=== PATIENT | female | born 1995 | race Caucasian/White ===

== ENCOUNTER 2016-07-27 14:24 | Inpatient (IN) | payer BC ==
[2016-07-27] MEDS ORDERED: LIDOCAINE 1% (PRES FREE) 30 ML VIAL ONE (15:05)
[2016-07-27] MEDS ORDERED: IV START KIT ONE (15:05)
[2016-07-27] MEDS ORDERED: LACTATED RINGERS 1,000 ML ONE (15:05)
[2016-07-27] MEDS ORDERED: OXYTOCIN 10 UNITS/ML VIAL ONE ×2 (15:05→16:48)
[2016-07-27] MEDS ORDERED: LIDOCAINE Viscous 2% 15 ML UDCUP ONE (15:05)
[2016-07-27] MEDS ORDERED: PUMP TUBING ONE ×2 (15:05→17:33)
[2016-07-27] MEDS ORDERED: MINERAL OIL 25 ML BOT ONE (15:05)
[2016-07-27] MEDS ORDERED: OXYTOCIN IN LR 0 ML IV ONE (15:06)
[2016-07-27] MEDS ORDERED: SODIUM CHLORIDE 0.9% FLUSH 10 ML ONE (15:21)
[2016-07-27] MEDS ORDERED: LACTATED RINGERS 2,000 ML ONE (15:52)
[2016-07-27 15:53] VITALS: BMI 28.8
[2016-07-27] MEDS ORDERED: EPIDURAL PROCEDURE TRAY ONE (15:55)
[2016-07-27 15:56] LABS: HEMATOCRIT 34.1 % (37.0-47.0); HEMOGLOBIN 10.7 gm/l (12.0-16.0); MEAN CORPUSCULAR HEMOGLOBIN 25.4 pg (27.0-31.0); MEAN CORPUSCULAR HGB CONC 31.4 g/dl (33.0-37.0); RED CELL DISTRIBUTION WIDTH 15.3 % (11.5-14.5)
[2016-07-27] MEDS ORDERED: FENTANYL/ROPIVACAINE EPIDURAL 0 ML EP ONE (16:00)
[2016-07-27] MEDS ORDERED: EPIDURAL PUMP SET ONE (16:00)
[2016-07-27] MEDS ORDERED: SPINAL PROCEDURAL TRAY 1 EACH ONE (16:11)
[2016-07-27] MEDS ORDERED: CEFAZOLIN SODIUM 2 GRAM DUPLEX 50 ML IV ONE (16:17)
[2016-07-27] MEDS ORDERED: MIDAZOLAM HCL 1 MG/ML 2ML VIAL ONE (16:34)
[2016-07-27] MEDS ORDERED: FENTANYL 100 MCG/2 ML VIAL ONE ×2 (16:35→17:00)
[2016-07-27] MEDS ORDERED: METHYLERGONOVINE MALEATE 0.2 MG/ML 1ML AMP ONE (16:40)
[2016-07-27] MEDS ORDERED: SUCCINYLCHOLINE CHL 20 MG/ML DOSE ONE (16:48)
[2016-07-27] MEDS ORDERED: PROPOFOL 20 ML IV ONE (16:48)
[2016-07-27] MEDS ORDERED: DEXAMETHASONE SOD PHOS 4 MG/1 ML VIAL ONE (16:49)
[2016-07-27] MEDS ORDERED: HYDROMORPHONE HCL 2 MG/ML SYRINGE ONE (16:51)
[2016-07-27] MEDS ORDERED: HYDROMORPHONE HCL 1 MG/ML SYRINGE IV PRN ×2 (17:05→19:35)
[2016-07-27] MEDS ORDERED: ONDANSETRON 4 MG/2ML 2 ML VIAL IV PRN ×2 (17:05→18:01)
[2016-07-27] MEDS ORDERED: HYDRALAZINE HCL 20 MG/1 ML VIAL IV PRN (17:05)
[2016-07-27] MEDS ORDERED: NALOXONE HCL 0.4 MG/ML VIAL IV PRN (17:05)
[2016-07-27] MEDS ORDERED: ATROPINE SULFATE 0.4 MG/1 ML VIAL IV PRN (17:05)
[2016-07-27] MEDS ORDERED: LABETALOL HCL 5 MG/ML 20ML VIAL IV PRN (17:05)
[2016-07-27] MEDS ORDERED: PROMETHAZINE HCL 25 MG/ML VIAL IM PRN (17:05)
[2016-07-27] MEDS ORDERED: MEPERIDINE 25 MG/ML SYRINGE IV PRN (17:05)
[2016-07-27] MEDS ORDERED: LACTATED RINGERS 1,000 ML IV SCH (17:15)
--- NOTE | 2016-07-27 17:24 | PDOC1 ---
- HPI 21 year old weeks gestational age by LMP, confirmed with 13 week ultrasound who presents in spontaneous labor at 4cm, membranes intact. Upon admissions, pt having spontaneous prolonged decelerations to 60-70's, over 1-3minutes. FHT recovered with moderate variability. Initially plan was to get epidural and observe, however the deceleration returned when pt SROM for thick meconium in triage. course otherwise uncomplicated. Allergies/Adverse Reactions: Allergies Sulfa (Sulfonamide Antibiotics) Allergy (Intermediate, Verified 06/07/14 15:58) Hives - Labs & Studies LABS: A-POS, Ab negative Rubella Immune RPR NR HepB NR GC/CT neg HIV neg GBS neg - Physical Exam General: Moderate Distress (uncomfortable with contractions) Psych/Mental Status: Mood/Affect Appropriate, Judgment/Insight Intact Abdomen: Other (EFW 3800g), No Tenderness, No Distention Genitourinary: Other (4cm dilated by RN; thick particulate meconium noted,) - Assessment & Plan 21yo at 41+4, admitted in labor but with NRFHT upon admission. Recurrent deep variable decelerations noted prior to and after SROM with thick meconium. Concern re: status is reviewed with pt. FSE had been placed. Discussed with patient the risks of including infection, bleeding, damage to underlying structures including bowel, bladder, uterus, tubes, ovaries , baby, and ureter, as well as will have a scar and can have persistent pain and numbness at incision site. Initially recommended spinal with FSE monitoring, however in OR had another deceleration to 60s >2 min. At this point, general anesthesia and expedient delivery commenced.
[2016-07-27] MEDS: FENTANYL 100 MCG/2 ML VIAL IV PRN ×3 (17:35→17:58)
[2016-07-27] MEDS ORDERED: DIPHENHYDRAMINE HCL 50 MG/1 ML VIAL IV PRN (18:01)
[2016-07-27] MEDS ORDERED: HYDROMORPHONE HCL 0.5 MG/0.5 ML SYRINGE IV PRN (18:01)
[2016-07-27] MEDS ORDERED: DIPHENHYDRAMINE HCL 25 MG CAPSULE PO PRN (18:01)
[2016-07-27] MEDS ORDERED: LANOLIN 50 APPLIC/7G TUBE TP PRN (18:01)
[2016-07-27] MEDS: HYDROMORPHONE HCL 1 MG/ML SYRINGE IV PRN ×2 (19:43→22:01)
--- NOTE | 2016-07-27 20:02 | OP ---
MARGARET FARIAS [id number] DATE OF OPERATION: July 27, 2016 PREOPERATIVE DIAGNOSES: 1. A 41 weeks plus 4 days . 2. Labor. 3. Nonreassuring heart tracing. POSTOPERATIVE DIAGNOSES: 1. A 41 weeks plus 4 days . 2. Labor. 3. Nonreassuring heart tracing. OPERATION PERFORMED: PRIMARY LOW-TRANSVERSE SECTION. SURGEON: Onel Escalona M.D. APPLIQUE SEWER: Joana Manrique C.N.M. ANESTHESIA: General. ESTIMATED BLOOD LOSS: 800 mL. COMPLICATIONS: None. OPERATIVE FINDINGS: Include: 1. A live born baby female in cephalic presentation with thick meconium. Baby was also found to be in direct occiput posterior position. There was no nuchal cord noted and no signs of abruption. 2. Ovaries, tubes and uterus are normal. DETAILS OF PROCEDURE: The patient was taken to the operating room and initially plan was for spinal anesthesia. However, upon arrival into the operating room and monitoring, it was noted that there was a prolonged deceleration into the 60s for two to three minutes. At this point, decision was made to proceed with general anesthesia for expedient delivery. Patient was then placed in supine position and a Hernandez catheter was then placed. The patient was then prepped and draped in sterile fashion. Patient was then placed under general anesthesia and the procedure was commenced. A Pfannenstiel incision was made and taken down to the level of the fascia. The fascia was incised transversely and dissected bilaterally off of the underlying rectus muscle. The rectus muscle was in the midline bluntly, and the peritoneal cavity was entered in bluntly and stretched. An Buck retractor was then placed, and a bladder flap was created. A transverse incision was made on the lower uterine segment. Baby was found to be in direct occiput posterior position and delivered easily and was bulb suctioned. There was a one-minute delay at this point prior to clamping of the cord. The cord was then doubly clamped and cut and the baby was then taken to the warmer for the nursing staff. The placenta was then extracted manually, and the uterus was cleared of all clots and membranes. The placenta was then sent to pathology due to meconium. The uterus was cleared of all clots and membranes, and the uterine incision was then closed with #0 Vicryl in a continuous fashion. A second layer of #0 Vicryl was used to imbricate this incision. There was good hemostasis observed. Tubes and ovaries were found to be normal. The peritoneum was then reapproximated with #3-0 Vicryl. The rectus muscles were reapproximated with #3-0 Vicryl as well. The fascia was then closed with #0 Vicryl in a continuous fashion, and the skin was then closed subcutaneously with #3-0 Monocryl suture. There was normal and complete instrument and laparotomy sponge count at this time. The patient was recovered from anesthesia and taken to the recovery room in stable condition.
[2016-07-27] MEDS ORDERED: FLU VACC 2016-17 (36MO-64Y)/PF 60 MCG/0.5 ML SYRINGE IM V ONE (20:24)
[2016-07-27] MEDS: DOCUSATE SODIUM 100 MG CAPSULE PO SCH (20:57)
[2016-07-27] MEDS: LACTATED RINGERS 1,000 ML IV SCH (21:59)
[2016-07-27] MEDS: KETOROLAC TROMETHAMINE 30 MG/ML 1 ML VIAL IV PRN (23:00)
[2016-07-28] MEDS: HYDROMORPHONE HCL 1 MG/ML SYRINGE IV PRN (04:11)
[2016-07-28] MEDS: KETOROLAC TROMETHAMINE 30 MG/ML 1 ML VIAL IV PRN (05:30)
[2016-07-28 06:15] LABS: HEMATOCRIT 29.9 % (37.0-47.0)
[2016-07-28] MEDS: OXYCODONE/ACETAMINOPHEN 5/325 MG TABLET PO PRN ×3 (06:54→19:45)
[2016-07-28] MEDS: DOCUSATE SODIUM 100 MG CAPSULE PO SCH ×2 (09:29→19:45)
[2016-07-28] MEDS: PRENATAL VIT/FE FUMARATE/FA 1 TABLET PO SCH (09:29)
--- NOTE | 2016-07-28 10:05 | PDOC44 ---
- Subjective Day: 1 Pain moderately well controlled. . Tolerating diet. No flatus yet. Reports Pain Tolerable, Reports , Reports Tolerating Regular Diet - Objective Temp Pulse Resp BP Pulse Ox 98.0 F 75 16 101/55 100 07/28/16 08:00 07/28/16 08:00 07/28/16 08:00 07/28/16 08:00 07/28/16 08:00 Lab Results 07/28/16 07/27/16 05:45 15:30 WBC 17.6 H RBC 4.21 Hgb 9.0 L 10.7 L Hct 29.9 L 34.1 L Plt Count 152 07/27/16 15:30 MCH 25.4 L MCHC 31.4 L RDW 15.3 H Current Medications Generic Name Dose Route Start Last Admin Trade Name Freq PRN Reason Stop Dose Admin Diphenhydramine HCl 25 - 50 mg 07/27/16 18:01 Benadryl PO Q6H PRN Itching (Mild/Moderate) Diphenhydramine HCl 25 - 50 mg 07/27/16 18:01 Benadryl IV Q6H PRN Itching (Severe) Docusate Sodium 100 mg 07/27/16 21:00 07/28/16 09:29 Colace PO 100 mg BID KATELYNN Administration Emollient Ointment 1 applic 07/27/16 18:01 [id number] TP PRN PRN sore nipples Hydromorphone HCl 1 mg 07/27/16 19:38 07/28/16 04:11 Dilaudid IV 1 mg Q2H PRN Administration Pain Lactated Ringer's 1,000 mls @ 125 mls/hr 07/27/16 18:01 07/27/16 21:59 Lactated Ringers IV 125 mls/hr .Q8H KATELYNN Administration Ibuprofen 800 mg 07/27/16 18:01 Motrin PO Q8H PRN Pain Ketorolac Tromethamine 30 mg 07/27/16 18:01 07/28/16 05:30 Toradol IV 30 mg Q6H PRN Administration Pain (Mild/Moderate) Multivi/Iron Carb/Fe Sulf/FA/Prenat 1 tab 07/28/16 09:00 07/28/16 09:29 Plus PO 1 tab DAILY KATELYNN Administration Ondansetron HCl 4 mg 07/27/16 18:01 Zofran IV Q6H PRN Nausea/Vomiting Oxycodone/Acetaminophen 1 - 2 tab 07/27/16 18:01 07/28/16 06:54 Percocet 5/325 PO 1 tab Q4H PRN Administration Pain (Moderate) Sodium Chloride 10 ml 07/27/16 18:01 07/28/16 05:30 Normal Saline 10ml Flush IV 10 ml PRN PRN Administration IV Flush Sodium Chloride 10 ml 07/28/16 01:00 Normal Saline 10ml Flush IV Q8HR KATELYNN - Physical Exam General: Afebrile Psych/Mental Status: Mood/Affect Appropriate, Judgment/Insight Intact, Bonding Well Neurological: Grossly Intact, Alert, Oriented x 4 HEENT: Atraumatic, PERRLA, EOMI, Mucous membr. moist/pink Lungs: Clear to Auscultation Bilaterally, Normal Air Movement Cardiovascular: Regular Rate and Rhythm, Normal S1, Normal S2 Breast: Soft, Skin intact, Nipples Intact Fundus: Firm, Midline, At Umbilicus Abdomen: Normal Bowel Sounds Lochia: Moderate Extremities: Full ROM Skin: Normal Color, Warm, Dry, Intact Wound INVESTMENT ANALYST: Dressing in Place, Dressing Clean/Dry/Intact Disposition: Anticipate DC Home Tomorrow
--- NOTE | 2016-07-28 10:28 | PCMAN ---
OB Admission Note - History : 2 Term: 1 : 0 Abortions (S&E): 0 Livin Gestational Age (weeks): 41 Days (#/7): 4 Admit Cervical Dilation:: 4 Admit Cervical Effacement (%):: 70 (moderate consitency) Admit Station:: -3 Admit Presentaton:: vtx, OP Membrane Status: Intact Labor Onset (Date): 07/27/16 Labor Onset (Time): 12:00 Contractions: Yes Contraction Frequency:: Q 2-4 Heart Rate:: 160 (minimal variability/accel present/variable decel to 70s x 1.5 mins followed by second variable to 80s x 4 mins ) Status:: Cat 2 EFW:: 8.75# Summary of Course:: Onset of care at 17w x 12 visits. Dating base on 13 week U/S. complicated by some unstable housing issues which resolved at term. Supported by [place]. Arrived to [facility] complaining of regular contractions. Denies leaking fluid, bleeding. Reports decreased movement today. Had PILAR on Wednesday which showed PILAR of 20 cm. - Labs Blood Type: A (+) positive Hct/Hgb:: 10.7/34.1 Rubella Status: Immune GBS Status: Negative Abnormal Labs: Urine Toxicology Positive - Review of Systems Neg ROS - Physical Exam General: Afebrile, No Acute Distress Psych/Mental Status: Mood/Affect Appropriate, Judgment/Insight Intact Neurological: Grossly Intact, Alert, Oriented x 4 Genitourinary: Normal Female Genitalia, No Edema Extremities: Full ROM, No Edema Skin: Normal Color, Warm, Dry - Problems (1) Labor abnormal Status: Acute Code: O62.9Assessment/Plan: 21 year old at 41w4d Early labor Nonreassuring heart tones FHR Cat 2 GBS neg malposition Plan: Receiving report from brakes inspector regarding first decel when second decel started. Went into patient's room and moved to left side with slow recovery of heart tones. Patient talking through contractions; which palpated mild to moderate. Discussed possible etiology of decels as cord compression and discussed that AROM for FSE placement may be needed if further decels occur to closely monitor status. However, also discussed risk for worsening decels considering PILAR of 20 cm. Brought bedside U/S to determine whether umbilical cord was near vertex. Noted that fetus was in direct OP position but was unable to visualize cord near vertex. Dr. Huffman also verified that there was no noticeable cord near vertex and confirmed direct OP position. After second decel ; saline lock was placed. Discussed with patient that we would have to closely weight benefits of continuing labor considering that she was in early labor and the was malpositioned with how the fetus seemed to be tolerating labor. Patient was able to talk and listen through the majority of her contractions at the time and she and her partner verbalized understanding. Intratuterine resuscitation techniques were used throughout this time to aid with recovery (O2, fluid bolus, frequent position changes). Fetus continued to have intermittent variable decels during as well as after contractions. Recovered with minimal variablity with periods of moderate. FHTs would recover with position changes. SVE at 1544 revealed that SVE from admit was unchanged and cervix was moderate consistency with vertex at -[address] Escalona and decided to give patient epidural anesthesia and then AROM for placement of FSE. OR team was in house and would be ready to move back if further severe decels occurred. Patient agreed with plan and anesthesia agreed to attempt epidural while patient lying on right side since it was the side that seemed to help best with recovery from decels. At the beginning of epidural preparation, fetus demonstration a prolonged decel to the 60s while patient was having a stronger contraction. FSE placed with AROM of large amounts of dark mec stained fluid. SVE unchanged and vertex still not well engaged. Dr. Escalona called to bedside. Discussed with patient that due to recurrent severe variables, increasing severity of decels with increasing contraction strength, malposition and remoteness from delivery; a primary delivery was recommended. Patient agreed with recommendation. FHTs in OR showed another prolonged decel to the 60s with slow recovery to baseline prior to delivery of the .
[2016-07-28] MEDS: IBUPROFEN 800 MG TABLET PO PRN ×2 (13:54→22:05)
[2016-07-28] MEDS: LACTATED RINGERS 1,000 ML IV SCH (16:40)
[2016-07-29] MEDS: IBUPROFEN 800 MG TABLET PO PRN ×2 (05:46→15:57)
[2016-07-29] MEDS: OXYCODONE/ACETAMINOPHEN 5/325 MG TABLET PO PRN ×4 (05:46→23:17)
[2016-07-29] MEDS: PRENATAL VIT/FE FUMARATE/FA 1 TABLET PO SCH (09:09)
[2016-07-29] MEDS: DOCUSATE SODIUM 100 MG CAPSULE PO SCH ×2 (09:09→20:55)
--- NOTE | 2016-07-29 10:02 | PDOC44 ---
- Subjective Day: 2 Pt sitting up in bed and well. 1yo at home. Sp LST c/section for intolerance of labor. Gradually getting energy back. Soreness discussed. Mild anemia H/H 9/29.9% but well tolerated. No BM as yet. Reports Flatus, Reports Pain Tolerable, Reports , Reports Lochia Light - Objective Temp Pulse Resp BP Pulse Ox 97.8 F 65 18 106/54 100 07/29/16 08:58 07/29/16 08:58 07/29/16 08:58 07/29/16 08:58 07/28/16 08:00 Current Medications Generic Name Dose Route Start Last Admin Trade Name Freq PRN Reason Stop Dose Admin Diphenhydramine HCl 25 - 50 mg 07/27/16 18:01 Benadryl PO Q6H PRN Itching (Mild/Moderate) Diphenhydramine HCl 25 - 50 mg 07/27/16 18:01 Benadryl IV Q6H PRN Itching (Severe) Docusate Sodium 100 mg 07/27/16 21:00 07/29/16 09:09 Colace PO 100 mg BID KATELYNN Administration Emollient Ointment 1 applic 07/27/16 18:01 Jii-C-Bxobil TP PRN PRN sore nipples Hydromorphone HCl 1 mg 07/27/16 19:38 07/28/16 04:11 Dilaudid IV 1 mg Q2H PRN Administration Pain Lactated Ringer's 1,000 mls @ 125 mls/hr 07/27/16 18:01 07/28/16 16:40 Lactated Ringers IV Not Given .Q8H KATELYNN Ibuprofen 800 mg 07/27/16 18:01 07/29/16 05:46 Motrin PO 800 mg Q8H PRN Administration Pain Ketorolac Tromethamine 30 mg 07/27/16 18:01 07/28/16 05:30 Toradol IV 30 mg Q6H PRN Administration Pain (Mild/Moderate) Multivi/Iron Carb/Fe Sulf/FA/Prenat 1 tab 07/28/16 09:00 07/29/16 09:09 Plus PO 1 tab DAILY KATELYNN Administration Ondansetron HCl 4 mg 07/27/16 18:01 Zofran IV Q6H PRN Nausea/Vomiting Oxycodone/Acetaminophen 1 - 2 tab 07/27/16 18:01 07/29/16 05:46 Percocet 5/325 PO 2 tab Q4H PRN Administration Pain (Moderate) Sodium Chloride 10 ml 07/27/16 18:01 07/28/16 05:30 Normal Saline 10ml Flush IV 10 ml PRN PRN Administration IV Flush Sodium Chloride 10 ml 07/28/16 01:00 07/28/16 14:42 Normal Saline 10ml Flush IV 10 ml Q8HR KATELYNN Administration - Physical Exam General: Afebrile Psych/Mental Status: Mood/Affect Appropriate, Bonding Well Neurological: Oriented x 4 Lungs: Clear to Auscultation Bilaterally Cardiovascular: Regular Rate and Rhythm Fundus: Firm Abdomen: Normal Bowel Sounds Lochia: Light Skin: Normal Color, Warm, Dry Wound DECORATING AND ASSEMBLY SUPERVISOR: Well Approximated - Problems:Assessment/Plan (1) delivery, delivered, current hospitalization Status: AcuteAssessment/Plan: Lower uterine segment transverse incision. Pt healing well. (2) intolerance to labor, delivered, current hospitalization Status: ResolvedAssessment/Plan: Healthy baby girl, thick mec, persistent OP Disposition: Anticipate DC Home Tomorrow
[2016-07-29] MEDS: LACTATED RINGERS 1,000 ML IV SCH ×3 (13:25→13:27)
[2016-07-29] MEDS ORDERED: HYDROCORTISONE 1% CREAM 20 APPLIC/30 G TUBE TP PRN (14:52)
[2016-07-30] MEDS: IBUPROFEN 800 MG TABLET PO PRN ×2 (01:06→09:13)
[2016-07-30] MEDS: DOCUSATE SODIUM 100 MG CAPSULE PO SCH ×2 (07:01→09:13)
[2016-07-30] MEDS: OXYCODONE/ACETAMINOPHEN 5/325 MG TABLET PO PRN ×2 (07:13→12:51)
[2016-07-30 07:29] VITALS: BP 138/61
[2016-07-30] MEDS: PRENATAL VIT/FE FUMARATE/FA 1 TABLET PO SCH (09:12)
--- NOTE | 2016-07-30 13:18 | SURGPATH ---
[facility] [address] [place] [id number] Patient Name: MARGARET FARIAS MR#: [id number] : 1995 Gender: F Specimen #: [id number] Collected: 07/27/2016 Received: 07/29/2016 Reported: 07/30/2016 Submitting Phys: SEDRICK REECE Copy To Phys: [facility] SALLIE CABALLERO Clinical History / Pre-Operative Diagnosis: intolerance of labor; thick meconium Specimen Source / Surgical Procedure Performed: Placenta Interpretation: PLACENTA: - THIRD TRIMESTER PLACENTA WITH THREE-VESSEL CORD - SEVERE ACUTE FUNISITIS AND CHORIOAMNIONITIS Electronically Signed Out Dennys Pérez M.D. Gross Description: The specimen is received in a formalin filled container labeled with the patient's name and "placenta". A 24 x 1 cm, normally coiled, three vessel umbilical cord is partially evulsed from its insertion site, 4 cm from the nearest edge of a 21 x 18 x 3 cm, 528 g discoid placenta. The surface and membranes are glistening and purple miller. There is no grossly recognizable abnormal discoloration. The membranes insert normally. There is focal pale-miller subchorionic fibrin. The maternal surface is red-brown spongy without missing cotyledons. Sectioning reveals no nodule or induration. A-umbilical cord and membranes B-edge section adjacent to umbilical cord insertion site including subchorionic fibrin C-full thickness section including subchorionic fibrin Henry Nunes Microscopic Description: Three-vessel cord shows moderate acute funisitis and the membranes show severe acute chorioamnionitis. There is a small peripheral infarction. No definite microscopic features of chronic meconium are seen. The placental parenchyma is mature, third trimester with mild loli-villous fibrin. 1: [id number] O43.893
--- NOTE | 2016-08-25 15:41 | PDOC39B ---
Hospital Course: ADMIT DATE: 07/27/16 DISCHARGE DATE: 07/30/16 ADMISSION DIAGNOSES: term , labor, nonreassuring tracing PROCEDURES: primary low transverse c/section HISTORY OF PRESENT ILLNESS: 21 year old G2 T1 L1 at 41 weeks 4 days presenting with labor at 4cm, membranes were intact. HOSPITAL COURSE: Upon admission, pt was noted to have spontaneous prolonged decelerations 60-70's. Pt then SROM with thick meconium, and the decelerations continued. Pt was then taken emergently to OR for c/section - was done under general anesthesia. Baby female, 9/9 apgars, 9lbs 1oz. The pt had an uncomplicated postoperative course. By day of discharge the patient is ambulating, eating, voiding, and passing flatus without difficulty. Pain is controlled and lochia is appropriate. She is []. Pt was discharged on Postoperative day #3 in stable condition. Laboratory Tests 07/27/16 07/28/16 15:30 05:45 WBC 17.6 H RBC 4.21 Hgb 10.7 L 9.0 L Hct 34.1 L 29.9 L MCV 81.0 MCH 25.4 L MCHC 31.4 L RDW 15.3 H Plt Count 152 Syphilis IgG/IgM Ab Non-reactive Last Vital Signs Temp 97.7 F 07/30/16 07:15 Pulse 91 07/30/16 07:15 Resp 16 07/30/16 07:15 BP 138/61 07/30/16 07:15 Pulse Ox 100 07/28/16 08:00 - Physical Exam Vital Signs: Temp Pulse Resp BP Pulse Ox 97.7 F 91 16 138/61 100 07/30/16 07:15 07/30/16 07:15 07/30/16 07:15 07/30/16 07:15 07/28/16 08:00 - Discharge Plan Condition: Stable Disposition: Home Instruction Forms: Section Discharge Instructions Additional Instructions: nothing in vagina x 6 weeks, take prescribed medications as written, no heavy lifting, may drive a car in one week. office visit with dr larios 4 days. Prescriptions: Ibuprofen [Motrin] 800 mg PO Q8H PRN #30 tablet PRN Reason: Pain FERROUS SULFATE (65 Fe) [IRON FERROUS SULFATE 325 MG TABLET (SHF)] 325 mg PO DAILY #30 tab Oxycodone HCl/Acetaminophen [PERCOCET 5/325 MG TABLET (SHF)] 1 - 2 tab PO Q4H PRN #14 tablet PRN Reason: Pain (Moderate)
== END 2016-07-30 13:34 | disposition home or self-care (01) | DRG 765 ==
LOC: FBCOUT 14:24 → FBC 14:24 → FBCOUT 15:06 → FBC 16:28
PROVIDERS: ADMIT Licensed Practical Nurse; ATTEND Obstetrics & Gynecology
PROC: 10D00Z1 Extraction of Products of Conception, Low, Open Approach (ICD-10-PCS; principal; 2016-07-27)
PROC: 4A0H7CZ Measurement of Products of Conception, Cardiac Rate, Via Natural or Artificial Opening (ICD-10-PCS; 2016-07-27)
PROC: 10907ZC Drainage of Amniotic Fluid, Therapeutic from Products of Conception, Via Natural or Artificial Opening (ICD-10-PCS; 2016-07-27)
PROC: 00HU33Z Insertion of Infusion Device into Spinal Canal, Percutaneous Approach (ICD-10-PCS; 2016-07-27)
PROC: 3E0234Z Introduction of Serum, Toxoid and Vaccine into Muscle, Percutaneous Approach (ICD-10-PCS; 2016-07-30)
DX: O76 Abnormality in fetal heart rate and rhythm complicating labor and delivery (principal); O41.1230 Chorioamnionitis, third trimester, not applicable or unspecified; O77.0 Labor and delivery complicated by meconium in amniotic fluid; O32.8XX0 Maternal care for other malpresentation of fetus, not applicable or unspecified; O43.893 Other placental disorders, third trimester; O90.81 Anemia of the puerperium; O48.0 Post-term pregnancy; Z3A.41 41 weeks gestation of pregnancy; Z37.0 Single live birth; Z88.2 Allergy status to sulfonamides; Z23 Encounter for immunization

== ENCOUNTER 2016-09-06 11:15 | Emergency (ER) | payer BC ==
[2016-09-06 12:02] LABS: URINE BILIRUBIN NEGATIVE (NEGATIVE); URINE BLOOD 4+ (NEGATIVE); URINE GLUCOSE (UA) NEGATIVE (NEGATIVE); URINE LEUKOCYTE ESTERASE 1+ (NEGATIVE); URINE NITRITE NEGATIVE (NEGATIVE); URINE PROTEIN TRACE (NEGATIVE); URINE UROBILINOGEN NORMAL (0-1 mg/dl)
[2016-09-06 12:03] LABS: URINE APPEARANCE HAZY; URINE COLOR YELLOW
[2016-09-06 12:10] LABS: URINE BACTERIA 2+; URINE RBC 40-50 /hpf; URINE WBC 15-20 /hpf
[2016-09-06 12:11] LABS: URINE MUCUS 2+
== END 2016-09-06 12:58 | disposition home or self-care (01) ==
LOC: ED 11:15
DX: N39.0 Urinary tract infection, site not specified (principal); R31.9 Hematuria, unspecified